=== PATIENT | male | born 1995 | race Caucasian/White ===

== ENCOUNTER → 2019-01-11 | Outpatient (CLI) | payer OTHER ==
--- NOTE | 2019-01-11 13:20 | KCIC ---
Indication abdominal pain for 4 to 5 days. TECHNIQUE: Supine views of the abdomen and pelvis COMPARISON: None FINDINGS: Heart is normal in size. Visualized lung bases are clear. No large pneumoperitoneum. No abnormally dilated bowel loops. Moderate proximal colonic stool burden. No abnormal calcific densities projecting over the kidneys to suggest apparent renal stones. Visualized bones are within normal limits. IMPRESSION: No radiographic evidence of high-grade bowel obstruction. Electronically signed by: Charlie Cooney DO (01/11/2019 1:17 PM) [facility]
== END | disposition home or self-care (01) ==
LOC: KCIC 12:20
PROVIDERS: ATTEND Nurse Practitioner Family
DX: R19.5 Other fecal abnormalities (principal); R10.9 Unspecified abdominal pain
CPT/HCPCS: 74018